=== PATIENT | male | born 1965 | race Caucasian/White ===

== ENCOUNTER → 2017-04-13 | Outpatient (CLI) | payer BC ==
[~2017-04-13] MED LIST: OXYC-57 PO
== END | disposition home or self-care (01) ==
LOC: C.LABSPEC 17:10
PROVIDERS: ATTEND Orthopaedic Surgery
DX: S68.113A Complete traumatic metacarpophalangeal amputation of left middle finger, initial encounter (principal); X58.XXXA Exposure to other specified factors, initial encounter